=== PATIENT | female | born 1990 | race Caucasian/White ===

== ENCOUNTER 2021-01-22 13:29 | Inpatient (IN) | payer MEDICAID ==
[2021-01-22] VITALS (25 sets, daily range): BP systolic 95–145; BP diastolic 51–104
[2021-01-22] MEDS ORDERED: D5 LR IV SOLUTION 1,000 ML IV SCH (13:45)
--- NOTE | 2021-01-22 14:08 | History & Physical-OB/GYN ---
DEEPAK MCARTHUR,MED STUDENT 01/22/21 1408: OB - Chief Complaint & HPI Date/Time Date of Admission: Date of Admission: Jan 22, 2021 at 13:29 Date seen by a Provider: Jan 22, 2021 Time Seen by a Provider: 14:04 Chief Complaint/History OB-Reason for Admission/Chief: Rupture of Membranes Hx : 4 Hx Para: 2204 Expected Date of Delivery: Jan 25, 2021 Gestational Age in Weeks: 39 Gestational Age in Days: 4 History of Labs O+, antibody neg, RI, HIV/HepB/RPR NR, G/C chlamydia negative, GBS negative Other Patient was seen for a routine OB visit at [facility] this morning. She had complaints of leakage of fluid and was found to have and DION of 2. She states she had a gush of fluid around 1999 last night. She also noted bleeding at that time. She was sent to L&D from the clinic. Allergies and Home Medications Allergies Coded Allergies: No Known Drug Allergies (Unverified , 01/22/21) OB - History Hx of Present Care: Yes Ultrasounds: Normal mid trimester US Obstetrical Complications: None Medical Complications: Other (hypothyroidism) Information Induced Hypertension: No Maternal Gestational Diabetes: No Hemorrhage: No Obstetrical History Hx : 4 Hx # Term Pregnancies: 2 Hx # Pregnancies: 2 Number of Living Children: 4 Hx Termination: No Hx Multiple Gestation: Yes Hx Ectopic : No Hx Stillbirth: No Hx Complication: No Hx Induced Hypertens: No Hx Maternal Gestational Diabet: No Hx Hemorrhage: No Delivery History Hx Dystocia: No Hx Forceps Assisted Delivery: No Hx Vacuum Extraction Assisted: No Hx Section: No Hx Vaginal Delivery Post C-Sec: No Hx Blood Disorders: No Adverse Rxn to Tranfusion: No Patient Past Medical History PMedHx: Hypothyroidism PSurgHx: None Social History/Family History Alcohol Use: Denies Use Recreational Drug Use: No Smoking Cessation: Never smoker Immunizations Tetanus Booster (TDap): Less than 5yrs Rubella: immune RPR/VDRL: Negative GBS Status: Negative HBsAG: Negative OB - Admission Exam Physical Exam HEENT: NCAT Heart: Rhythm Normal Lungs: Clear Abdomen: Non tender Extremities: Normal Cervical Dilatation: 3cm Effacement: 0% Station: -3 Membranes: Ruptured Amniotic Fluid: Unevaluable Heart Rate: 140's Accelerations: Accelerations Present Decelerations: No Decelerations Short Term Variability: Present [facility] Variability: Average (6-25) Contractions on Admission: 6-10 Minutes Apart Lara Scoring Tool (Modified) Dilation (cm): 3-4cm (2) Effacement (%): 0-30% (0) Descent/Station: -3 (0) Cervix Consistency: Soft (2) Cervix Position: Anterior (2) Add 1 point for: Each previous vaginal delivery (1) Lara Score: 8 OB - Assessment/Plan/Diagnosis Assessment Assessment: induction of labor, rupture of membranes Admission Dx Term intrauterine at 39 weeks gestation Rubella Immune Blood Type O+ GBS negative Admission Status: Inpatient Order (span 2 midnights) Reason for Inpatient Admission: Labor, delivery, and course Plan Plan: Induction Induction Method: per Pitocin Protocol MIKE WHITE MD 01/22/21 1940: Allergies and Home Medications Allergies Coded Allergies: No Known Drug Allergies (Unverified , 01/22/21) Patient Home Medication List Home Medication List Reviewed: No Supervisory-Addendum Brief Verification & Attestation Participated in pt care: history, MDM, physical Personally performed: exam, history Care discussed with: Medical Student Procedures: n/a I personally saw and examined pt and repeated history and exam and directed plan of care. Agree with documentation by ENRIQUE Mcarthur. DEEPAK MCARTHUR,MED STUDENT Jan 22, 2021 14:08 MIKE WHITE MD Jan 22, 2021 19:40
[2021-01-22] MEDS: OXYTOCIN PRE-MIX DRIP 500 ML IV SCH ×2 (14:32→19:42)
[2021-01-22 15:29] LABS: BASOPHILS % (AUTO) 0 % (0-10); EOSINOPHILS % (AUTO) 1 % (0-10); HEMATOCRIT 37 % (35-52); HEMOGLOBIN 12.7 g/dL (11.5-16.0); LYMPHOCYTES # (AUTO) 1.1 10^3/uL (1.0-4.0); LYMPHOCYTES % (AUTO) 25 % (12-44); MEAN CORPUSCULAR HEMOGLOBIN 31 pg (25-34); MEAN CORPUSCULAR HGB CONC 34 g/dL (32-36); MEAN CORPUSCULAR VOLUME 91 fL (80-99); MEAN PLATELET VOLUME 10.7 fL (9.0-12.2); MONOCYTES # (AUTO) 0.3 10^3/uL (0.0-1.0); MONOCYTES % (AUTO) 7 % (0-12); NEUTROPHILS # (AUTO) 3.1 10^3/uL (1.8-7.8); NEUTROPHILS % (AUTO) 67 % (42-75); PLATELET COUNT 150 10^3/uL (130-400); WHITE BLOOD COUNT 4.6 10^3/uL (4.3-11.0)
[2021-01-22] MEDS ORDERED: fentaNYL INJ 100 MCG/2 ML AMP ONE (18:54)
--- NOTE | 2021-01-22 19:27 | OB Labor & Delivery Record ---
Vag Delivery Note Vag Delivery Note Date of Delivery: 01/22/21 Preoperative Diagnosis: Ashlee her (30 /Para 2203,Gestational Age (wks)39with 4 Postoperative Diagnosis: Same Surgeon: MIKE WHITE Systems Specialist: YANIV [email or web address] Anesthesia: None Delivery Type: Findings: Viable male , apgars 8/8, weight 5#5 Lacerations: none Intact placenta with 3 vessel cord. No nuchal cord, body cord or shoulder dystocia Estimated Blood Loss: 250 ml Complications: None Condition: Stable Description of Procedure: The patient is a 30 year old female who presented for IOL due to oligohydramnios/prolonged rupture of membranes. She was admitted and informed consent was obtained. Her labor course was remarkable for prolonged bradycardia with pushing. She progressed to complete dilatation and began to push. She was then set up for delivery. The 's head was delivered atraumatically in the OA position. The anterior shoulder along with right hand delivered easily followed by the posterior shoulder and remainder of the 's body were then delivered without difficulty. Upon delivery, the head was held below the level of the perineum and the mouth and nares were bulb suctioned. The cord was doubly clamped and cut and the infant was placed on maternal abdomen. An intact placenta with 3-vessel cord delivered via Mitch and there was found to be minimal bleeding.~ Vigorous fundal massage was performed and the fundus was found to be firm. IV oxytocin was given. Examination of the vagina and perineum revealed no lacerations. Following the delivery, sponge, instrument and needle counts were correct. Mom and baby were both in stable condition in the labor suite. Vitals - Labs Labs Laboratory Tests 01/22/21 15:05: White Blood Count 4.6, Red Blood Count 4.09, Hemoglobin 12.7, Hematocrit 37, Mean Corpuscular Volume 91, Mean Corpuscular Hemoglobin 31, Mean Corpuscular Hemoglobin Concent 34, Red Cell Distribution Width 11.3, Platelet Count 150, Mean Platelet Volume 10.7, Immature Granulocyte % (Auto) 1, Neutrophils (%) (Auto) 67, Lymphocytes (%) (Auto) 25, Monocytes (%) (Auto) 7, Eosinophils (%) (Auto) 1, Basophils (%) (Auto) 0, Neutrophils # (Auto) 3.1, Lymphocytes # (Auto) 1.1, Monocytes # (Auto) 0.3, Eosinophils # (Auto) 0.0, Basophils # (Auto) 0.0, Immature Granulocyte # (Auto) 0.0 MIKE WHITE MD Jan 22, 2021 19:27
[2021-01-22] MEDS ORDERED: OXYTOCIN PRE-MIX DRIP 500 ML IV SCH (20:45)
[2021-01-22] MEDS ORDERED: BENZOCAINE/MENTHOL (DERMOPLAST) 56 ML CAN TP PRN (20:45)
[2021-01-22] MEDS ORDERED: WITCH HAZEL(TUCKS) 40 EA JAR TOP PRN (20:45)
[2021-01-22] MEDS ORDERED: TETANUS,DIPTH,PERTUSS P/F (BOOSTRIX) 0.5 ML VIAL IM ONE (20:45)
[2021-01-22] MEDS ORDERED: MEASLES,MUMPS,RUBELLA 1 EA INJ SQ ONE (20:45)
[2021-01-22] MEDS ORDERED: CATHETER FLUSH 10 ML SYR IV SCH (22:00)
[2021-01-22] MEDS: DOCUSATE SODIUM 100 MG (COLACE) CAP PO SCH (22:05)
[2021-01-23 02:00] VITALS: BP 109/56
[2021-01-23 05:30] VITALS: BP 114/88
[2021-01-23] MEDS: IBUPROFEN 600 MG (MOTRIN) TAB PO SCH ×2 (06:12)
[2021-01-23 06:14] LABS: BASOPHILS % (AUTO) 0 % (0-10); EOSINOPHILS % (AUTO) 0 % (0-10); HEMATOCRIT 34 % (35-52); HEMOGLOBIN 11.6 g/dL (11.5-16.0); LYMPHOCYTES # (AUTO) 1.7 10^3/uL (1.0-4.0); LYMPHOCYTES % (AUTO) 28 % (12-44); MEAN CORPUSCULAR HEMOGLOBIN 31 pg (25-34); MEAN CORPUSCULAR HGB CONC 34 g/dL (32-36); MEAN CORPUSCULAR VOLUME 92 fL (80-99); MEAN PLATELET VOLUME 10.9 fL (9.0-12.2); MONOCYTES # (AUTO) 0.4 10^3/uL (0.0-1.0); MONOCYTES % (AUTO) 6 % (0-12); NEUTROPHILS # (AUTO) 3.9 10^3/uL (1.8-7.8); NEUTROPHILS % (AUTO) 64 % (42-75); PLATELET COUNT 157 10^3/uL (130-400); WHITE BLOOD COUNT 6.1 10^3/uL (4.3-11.0)
[2021-01-23 09:00] VITALS: BP 100/55
[2021-01-23] MEDS: DOCUSATE SODIUM 100 MG (COLACE) CAP PO SCH (09:00)
--- NOTE | 2021-01-23 09:34 | Progress Note ---
Subjective Subjective/Events-last exam Doing well. Normal lochia, pain well controlled. Objective Exam Last Set of Vital Signs Vital Signs Date Time Temp Pulse Resp B/P (MAP) Pulse Ox O2 Delivery O2 Flow Rate FiO2 01/23/21 05:30 37.0 76 16 114/88 (97) 98 Room Air Capillary Refill : Less Than 3 Seconds General: Alert, Oriented X3, Cooperative Psych/Mental Status: Mood NL Results/Procedures Lab Laboratory Tests 01/22/21 15:05: White Blood Count 4.6, Red Blood Count 4.09, Hemoglobin 12.7, Hematocrit 37, Mean Corpuscular Volume 91, Mean Corpuscular Hemoglobin 31, Mean Corpuscular Hemoglobin Concent 34, Red Cell Distribution Width 11.3, Platelet Count 150, Mean Platelet Volume 10.7, Immature Granulocyte % (Auto) 1, Neutrophils (%) (Auto) 67, Lymphocytes (%) (Auto) 25, Monocytes (%) (Auto) 7, Eosinophils (%) (Auto) 1, Basophils (%) (Auto) 0, Neutrophils # (Auto) 3.1, Lymphocytes # (Auto) 1.1, Monocytes # (Auto) 0.3, Eosinophils # (Auto) 0.0, Basophils # (Auto) 0.0, Immature Granulocyte # (Auto) 0.0 01/23/21 05:29: White Blood Count 6.1, Red Blood Count 3.76L, Hemoglobin 11.6, Hematocrit 34L, Mean Corpuscular Volume 92, Mean Corpuscular Hemoglobin 31, Mean Corpuscular Hemoglobin Concent 34, Red Cell Distribution Width 11.3, Platelet Count 157, Mean Platelet Volume 10.9, Immature Granulocyte % (Auto) 1, Neutrophils (%) (Auto) 64, Lymphocytes (%) (Auto) 28, Monocytes (%) (Auto) 6, Eosinophils (%) (Auto) 0, Basophils (%) (Auto) 0, Neutrophils # (Auto) 3.9, Lymphocytes # (Auto) 1.7, Monocytes # (Auto) 0.4, Eosinophils # (Auto) 0.0, Basophils # (Auto) 0.0, Immature Granulocyte # (Auto) 0.0 Assessment/Plan Assessment/Plan (1) Status post vaginal delivery Assessment & Plan: PPD#1 s/p at 39w4d following [facility] Routine care. Anticipate DC home tomorrow. RODRIGUEZ JACKSON DO Jan 23, 2021 09:34
[2021-01-23 12:30] VITALS: BP 93/52
[2021-01-23 16:50] VITALS: BP 104/58
[2021-01-23 21:00] VITALS: BP 96/61
[2021-01-24 02:17] VITALS: BP 137/52
[2021-01-24] MEDS: DOCUSATE SODIUM 100 MG (COLACE) CAP PO SCH ×2 (02:44→09:00)
[2021-01-24] MEDS: IBUPROFEN 600 MG (MOTRIN) TAB PO SCH ×3 (02:44→09:00)
[2021-01-24 09:30] VITALS: BP 94/50
[2021-01-24] MEDS ORDERED: IBUP-844 PO (12:29)
--- NOTE | 2021-01-24 12:29 | Short Stay Summary ---
Discharge Summary Hospital Course Problems/Dx: (1) Status post vaginal delivery Assessment & Plan: s/p at 39w4d following [facility] Routine care. Final Diagnosis: see problem list Hospital Course Date of Admission: Jan 22, 2021 at 13:29 Family Physician/Provider: Serenity Morales MD Date of Discharge: 01/24/21 Labs and Pending Lab Test: Laboratory Tests 01/22/21 15:05: White Blood Count 4.6, Red Blood Count 4.09, Hemoglobin 12.7, Hematocrit 37, Me an Corpuscular Volume 91, Mean Corpuscular Hemoglobin 31, Mean Corpuscular Hemoglobin Concent 34, Red Cell Distribution Width 11.3, Platelet Count 150, Mean Platelet Volume 10.7, Immature Granulocyte % (Auto) 1, Neutrophils (%) (Auto) 67, Lymphocytes (%) (Auto) 25, Monocytes (%) (Auto) 7, Eosinophils (%) (Auto) 1, Basophils (%) (Auto) 0, Neutrophils # (Auto) 3.1, Lymphocytes # (Auto) 1.1, Monocytes # (Auto) 0.3, Eosinophils # (Auto) 0.0, Basophils # (Auto) 0.0, Immature Granulocyte # (Auto) 0.0 01/23/21 05:29: White Blood Count 6.1, Red Blood Count 3.76L, Hemoglobin 11.6, Hematocrit 34L, Mean Corpuscular Volume 92, Mean Corpuscular Hemoglobin 31, Mean Corpuscular Hemoglobin Concent 34, Red Cell Distribution Width 11.3, Platelet Count 157, Mean Platelet Volume 10.9, Immature Granulocyte % (Auto) 1, Neutrophils (%) (Auto) 64, Lymphocytes (%) (Auto) 28, Monocytes (%) (Auto) 6, Eosinophils (%) (Auto) 0, Basophils (%) (Auto) 0, Neutrophils # (Auto) 3.9, Lymphocytes # (Auto) 1.7, Monocytes # (Auto) 0.4, Eosinophils # (Auto) 0.0, Basophils # (Auto) 0.0, Immature Granulocyte # (Auto) 0.0 Assessment/Pt Instructions follow up with Dr. Morales in 6wk Discharge Instructions Discharge Diet: No Restrictions Discharge Physical Examination General Appearance: Alert, Oriented X3, Cooperative Psych/Mental Status: Mood NL Allergies: Coded Allergies: No Known Drug Allergies (Unverified , 01/22/21) Discharge Summary Date of Admission Jan 22, 2021 at 13:29 Date of Discharge RODRIGUEZ JACKSON DO Jan 24, 2021 12:29
[2021-01-24 14:30] VITALS: BP 107/56
[2021-01-24 17:15] VITALS: BP 107/56
== END 2021-01-24 17:15 | disposition home or self-care (01) | DRG 807 ==
LOC: LDRP 13:29
PROVIDERS: ADMIT Family Medicine; ATTEND Family Medicine
PROC: 10E0XZZ Delivery of Products of Conception, External Approach (ICD-10-PCS; principal; 2021-01-22)
PROC: 3E033VJ Introduction of Other Hormone into Peripheral Vein, Percutaneous Approach (ICD-10-PCS; 2021-01-22)
DX: O41.03X0 Oligohydramnios, third trimester, not applicable or unspecified (principal); Z37.0 Single live birth; O42.02 Full-term premature rupture of membranes, onset of labor within 24 hours of rupture; O99.283 Endocrine, nutritional and metabolic diseases complicating pregnancy, third trimester; E03.9 Hypothyroidism, unspecified; Z3A.39 39 weeks gestation of pregnancy
CPT/HCPCS: 36415; 85025; 86850; 86900; 86901

== ENCOUNTER 2022-02-12 12:59 | Inpatient (IN) | payer MEDICAID ==
[~2022-02-12] VITALS: Ht 150 cm; Wt 67.4 kg
[2022-02-12] VITALS (9 sets, daily range): BP systolic 119–166; BP diastolic 56–91
[~2022-02-12 12:59] MED LIST: IBUP-844 PO
[2022-02-12 13:54] LABS: BILIRUBIN,URINE NEGATIVE (NEGATIVE); CLARITY,URINE CLEAR; COLOR,URINE YELLOW; GLUCOSE, URINE (UA) NEGATIVE (NEGATIVE); KETONES,URINE NEGATIVE (NEGATIVE); LEUKOCYTE ESTERASE ,URINE 1+ (NEGATIVE); NITRITE,URINE NEGATIVE (NEGATIVE); PROTEIN,URINE TRACE (NEGATIVE)
[2022-02-12 14:15] LABS: BACTERIA,URINE TRACE /HPF
[2022-02-12] MEDS ORDERED: LACTATED RINGERS 1,000 ML IV SCH (15:15)
[2022-02-12] MEDS ORDERED: MINERAL OIL 30 ML OIL TOP PRN (18:45)
[2022-02-12 18:50] LABS: BASOPHILS # (AUTO) 0.1 10^3/uL (0.0-0.1); BASOPHILS % (AUTO) 1 % (0-10); EOSINOPHILS # (AUTO) 0.4 10^3/uL (0.0-0.3); EOSINOPHILS % (AUTO) 3 % (0-10); HEMATOCRIT 37 % (35-52); HEMOGLOBIN 12.9 g/dL (11.5-16.0); LYMPHOCYTES # (AUTO) 2.7 10^3/uL (1.0-4.0); LYMPHOCYTES % (AUTO) 18 % (12-44); MEAN CORPUSCULAR HEMOGLOBIN 32 pg (25-34); MEAN CORPUSCULAR HGB CONC 35 g/dL (32-36); MEAN CORPUSCULAR VOLUME 90 fL (80-99); MEAN PLATELET VOLUME 9.8 fL (9.0-12.2); MONOCYTES # (AUTO) 0.8 10^3/uL (0.0-1.0); MONOCYTES % (AUTO) 5 % (0-12); NEUTROPHILS # (AUTO) 11.3 10^3/uL (1.8-7.8); NEUTROPHILS % (AUTO) 74 % (42-75); PLATELET COUNT 198 10^3/uL (130-400); WHITE BLOOD COUNT 15.4 10^3/uL (4.3-11.0)
[2022-02-12] MEDS ORDERED: LIDOCAINE/EPI 2% 1:200,00 (XYLOCAINE) 10 ML VIAL ONE (18:50)
[2022-02-12] MEDS ORDERED: OXYTOCIN PRE-MIX DRIP 500 ML IV ONE ×2 (18:51→19:35)
[2022-02-12] MEDS: OXYTOCIN PRE-MIX DRIP 500 ML IV SCH (19:04)
[2022-02-12 19:25] LABS: BAND NEUTROPHILS 1 %; EOSINOPHILS % (MANUAL) 2 %; LYMPHOCYTES % (MANUAL) 13 %; MONOCYTES % (MANUAL) 2 %; NEUTROPHILS % (MANUAL) 82 %; RBC MORPH NORMAL
--- NOTE | 2022-02-12 19:25 | History & Physical-OB ---
OB - Chief Complaint & HPI Date/Time Date of Admission: Date of Admission: Feb 12, 2022 at 18:30 Date seen by a Provider: Feb 12, 2022 Time Seen by a Provider: 19:06 Chief Complaint/History OB-Reason for Admission/Chief: Onset of Labor Hx : 5 Hx Para: 4 Expected Date of Delivery: February 28, 2022 Gestational Age in Weeks: 37 Gestational Age in Days: 5 Other reason for admission: 31 yo @ 37.5 wga sent here from clinic due to advanced dilation and intermittent contractions. No LOF or Vag bleeding. History of Labs O+, Ab neg, Rub Imm HIV/RPR/HepB/C NR GBS unknown Allergies and Home Medications Allergies Coded Allergies: No Known Drug Allergies (Unverified , 01/22/21) Patient Home Medication List Home Medication List Reviewed: Yes Ibuprofen (Ibu) 600 Mg Tablet, 600 MG PO Q6HR PRN for CRAMPS Prescribed by: RODRIGUEZ JACKSON on 01/24/21 1229 OB - History Hx of Present Care: Yes Ultrasounds: Other (Initial US @ 33 weeks) Obstetrical Complications: None Medical Complications: None Obstetrical History Hx : 5 Hx Para: 4 Hx # Term Pregnancies: 3 Hx # Pregnancies: 1 Number of Living Children: 5 Hx Termination: No Hx Total # of Abortions (Spona: 0 Hx Multiple Gestation: Yes Hx Stillbirth: No Hx Complication: No Hx Induced Hypertens: No Hx Maternal Gestational Diabet: No Delivery History Hx Dystocia: No Hx Section: No Hx Vaginal Delivery Post C-Sec: No Hx Blood Disorders: No Adverse Rxn to Tranfusion: No Patient Past Medical History PMedHx: Hypothyroidism PSurgHx: None Social History/Family History Alcohol Use: Denies Use Recreational Drug Use: No 2nd Hand Smoke Exposure: No Immunizations Hepatitis A: No Hepatitis B: No Tetanus Booster (TDap): Less than 5yrs Rubella: immune RPR/VDRL: Negative GBS Status: Unknown HBsAG: Negative OB - Admission Exam Physical Exam Vitals: Vital Signs 02/12/22 02/12/22 13:52 14:17 Temp 36.6 Pulse 76 Resp 18 B/P (MAP) 122/71 (88) Pulse Ox 98 O2 Delivery Room Air HEENT: NCAT Heart: Rhythm Normal Lungs: Clear Abdomen: Gravid Cervical Dilatation: other (Baby delivered at time of H and P) Labs Laboratory Tests Test 02/12/22 13:19 02/12/22 18:42 Range/Units Urine Color YELLOW Urine Clarity CLEAR Urine pH 6.0 5-9 Urine Specific [place] 1.015 L 1.016-1.022 Urine Protein TRACE H NEGATIVE Urine Glucose (UA) NEGATIVE NEGATIVE Urine Ketones NEGATIVE NEGATIVE Urine Nitrite NEGATIVE NEGATIVE Urine Bilirubin NEGATIVE NEGATIVE Urine Urobilinogen 0.2 < = 1.0 MG/DL Urine Leukocyte Esterase 1+ H NEGATIVE Urine RBC (Auto) 2+ H NEGATIVE Urine RBC NONE /HPF Urine WBC 2-5 /HPF Urine Squamous Epithelial Cells 2-5 /HPF Urine Crystals NONE /LPF Urine Bacteria TRACE /HPF Urine Casts NONE /LPF Urine Mucus NEGATIVE /LPF Urine Culture Indicated NO White Blood Count 15.4 H 4.3-11.0 10^3/uL Red Blood Count 4.08 3.80-5.11 10^6/uL Hemoglobin 12.9 11.5-16.0 g/dL Hematocrit 37 35-52 % Mean Corpuscular Volume 90 80-99 fL Mean Corpuscular Hemoglobin 32 25-34 pg Mean Corpuscular Hemoglobin Concent 35 32-36 g/dL Red Cell Distribution Width 11.3 10.0-14.5 % Platelet Count 198 130-400 10^3/uL Mean Platelet Volume 9.8 9.0-12.2 fL Immature Granulocyte % (Auto) 1 % Neutrophils (%) (Auto) 74 42-75 % Lymphocytes (%) (Auto) 18 12-44 % Monocytes (%) (Auto) 5 0-12 % Eosinophils (%) (Auto) 3 0-10 % Basophils (%) (Auto) 1 0-10 % Neutrophils # (Auto) 11.3 H 1.8-7.8 10^3/uL Lymphocytes # (Auto) 2.7 1.0-4.0 10^3/uL Monocytes # (Auto) 0.8 0.0-1.0 10^3/uL Eosinophils # (Auto) 0.4 H 0.0-0.3 10^3/uL Basophils # (Auto) 0.1 0.0-0.1 10^3/uL Immature Granulocyte # (Auto) 0.1 0.0-0.1 10^3/uL OB - Assessment/Plan/Diagnosis Assessment Assessment: active labor Admission Dx Advanced dilation Third trimester 37 week gestation Limited care Admission Status: Inpatient Order (span 2 midnights) Reason for Inpatient Admission: Labor Plan Other Plan 31 yo @ 37.5 wga sent from clinic for advanced dilation and intermittent contractions Plan Expectant management GBS Unknown, term low risk, no ppx treatment recommended LESLIE ORITZ MD Feb 12, 2022 19:25
--- NOTE | 2022-02-12 19:42 | OB Labor & Delivery Record ---
Vag Delivery Note Vag Delivery Note Date of Delivery: 02/12/22 Preoperative Diagnosis: sAhlee gr a (31 /Para 5 / 4,Gestational Age (wks)37.5 here in active labor Postoperative Diagnosis: Same Surgeon: LESLIE ORTIZ MD Interior Surface Insulation Worker: None Anesthesia: None Delivery Type: @ 190 Findings: Viable female infant, apgars 8/9, weight 5#14, 2670 grams Lacerations: None Intact placenta with 3 vessel cord. No nuchal cord, body cord or shoulder dystocia Estimated Blood Loss: 125 ml Complications: None Condition: Stable Description of Procedure: The patient is a 31 year old female who presented in active labor. She was admitted and informed consent was obtained. Her labor course was remarkable for precipitous delivery, delivered prior to my arrival by nursing. MAUREEN position. Tight nuchal x1 delivered thru. The shoulders and remainder of the infant's body were then delivered without difficulty. The cord was doubly clamped and cut and the was handed off to the pediatric staff. An intact placenta with 3- vessel cord delivered via Mitch and there was found to be minimal bleeding @ 1906.~ Vigorous fundal massage was performed and the fundus was found to be firm. IV oxytocin was given. Examination of the vagina and perineum revealed no lacerations that required repair. Following the repair, sponge, instrument and needle counts were correct. Mom and baby were both in stable condition in the labor suite. Vitals - Labs Vital Signs - I&O Vital Signs Date Time Temp Pulse Resp B/P (MAP) Pulse Ox O2 Delivery O2 Flow Rate FiO2 02/12/22 14:17 76 18 122/71 (88) 02/12/22 13:52 36.6 75 16 98 Room Air 02/12/22 13:45 86 16 120/91 (101) Labs Laboratory Tests 02/12/22 13:19: Urine Color YELLOW, Urine Clarity CLEAR, Urine pH 6.0, Urine Specific [place] 1.015L, Urine Protein TRACEH, Urine Glucose (UA) NEGATIVE, Urine Ketones NEGATIVE, Urine Nitrite NEGATIVE, Urine Bilirubin NEGATIVE, Urine Urobilinogen 0.2, Urine Leukocyte Esterase 1+H, Urine RBC (Auto) 2+H, Urine RBC NONE, Urine WBC 2-5, Urine Squamous Epithelial Cells 2-5, Urine Crystals NONE, Urine Bacteria TRACE, Urine Casts NONE, Urine Mucus NEGATIVE, Urine Culture Indicated NO 02/12/22 18:42: White Blood Count 15.4H, Red Blood Count 4.08, Hemoglobin 12.9, Hematocrit 37, Mean Corpuscular Volume 90, Mean Corpuscular Hemoglobin 32, Mean Corpuscular Hemoglobin Concent 35, Red Cell Distribution Width 11.3, Platelet Count 198, Mean Platelet Volume 9.8, Immature Granulocyte % (Auto) 1, Neutrophils (%) (Auto) 74, Lymphocytes (%) (Auto) 18, Monocytes (%) (Auto) 5, Eosinophils (%) (Auto) 3, Basophils (%) (Auto) 1, Neutrophils # (Auto) 11.3H, Lymphocytes # (Auto) 2.7, Monocytes # (Auto) 0.8, Eosinophils # (Auto) 0.4H, Basophils # (Auto) 0.1, Immature Granulocyte # (Auto) 0.1, Neutrophils % (Manual) 82, Lymphocytes % (Manual) 13, Monocytes % (Manual) 2, Eosinophils % (Manual) 2, Band Neutrophils 1, Blood Morphology Comment NORMAL LESLIE ORTIZ MD Feb 12, 2022 19:42
[2022-02-12] MEDS ORDERED: WITCH HAZEL(TUCKS) 40 EA JAR TOP PRN (19:45)
[2022-02-12] MEDS ORDERED: BENZOCAINE/MENTHOL (DERMOPLAST) 56 ML CAN TP PRN (19:45)
[2022-02-12] MEDS: CATHETER FLUSH 10 ML SYR IV SCH (20:30)
[2022-02-12] MEDS: DOCUSATE SODIUM 100 MG (COLACE) CAP PO SCH (21:00)
[2022-02-12] MEDS ORDERED: CATHETER FLUSH 10 ML SYR IV SCH (22:00)
[2022-02-13] MEDS: OXYTOCIN PRE-MIX DRIP 500 ML IV SCH (00:20)
[2022-02-13] MEDS: IBUPROFEN 600 MG (MOTRIN) TAB PO SCH ×4 (00:55→19:08)
[2022-02-13] MEDS: ACETAMINOPHEN 500 MG TAB (TYLENOL) PO SCH ×4 (00:55→20:52)
[2022-02-13] MEDS: CATHETER FLUSH 10 ML SYR IV SCH (00:55)
[2022-02-13 00:56] VITALS: BP 115/64
[2022-02-13 04:15] VITALS: BP 116/53
[2022-02-13 06:39] LABS: BASOPHILS # (AUTO) 0.1 10^3/uL (0.0-0.1); BASOPHILS % (AUTO) 0 % (0-10); EOSINOPHILS # (AUTO) 0.4 10^3/uL (0.0-0.3); EOSINOPHILS % (AUTO) 3 % (0-10); HEMATOCRIT 33 % (35-52); HEMOGLOBIN 11.5 g/dL (11.5-16.0); LYMPHOCYTES # (AUTO) 2.6 10^3/uL (1.0-4.0); LYMPHOCYTES % (AUTO) 20 % (12-44); MEAN CORPUSCULAR HEMOGLOBIN 32 pg (25-34); MEAN CORPUSCULAR HGB CONC 35 g/dL (32-36); MEAN CORPUSCULAR VOLUME 91 fL (80-99); MEAN PLATELET VOLUME 10.3 fL (9.0-12.2); MONOCYTES # (AUTO) 0.9 10^3/uL (0.0-1.0); MONOCYTES % (AUTO) 7 % (0-12); NEUTROPHILS # (AUTO) 9.4 10^3/uL (1.8-7.8); NEUTROPHILS % (AUTO) 70 % (42-75); PLATELET COUNT 185 10^3/uL (130-400); WHITE BLOOD COUNT 13.5 10^3/uL (4.3-11.0)
[2022-02-13 08:15] VITALS: BP 114/56
[2022-02-13] MEDS: DOCUSATE SODIUM 100 MG (COLACE) CAP PO SCH ×2 (08:25→20:51)
[2022-02-13 13:11] VITALS: BP 131/63
[2022-02-13 15:49] VITALS: BP 113/56
--- NOTE | 2022-02-13 20:45 | Postpartum Progress Note ---
Note Note Day # 1 Subjective: Patient is without complaints. Ambulating, voiding. Tolerating a regular diet without nausea or vomiting. Normal lochia. Pain is well controlled with oral pain medications. Bottle feeding. Objective: Physical Exam: General - Alert and oriented, no apparent distress Abdomen - Soft, appropriately tender to palpation, non-distended, fundus firm at umbilicus Extremities - no edema, negative Eugenio's bilaterally Assessment: 31 yo G5 now P6 post- day #1, status post spontaneous precipitous vaginal delivery. Recovering well, hemodynamically stable Plan: Routine care. Encourage breast feeding, mother bottle feeding currently Encourage ambulation. Plan for discharge tomorrow with [address] Morales Vitals - Labs Vital Signs - I&O Vital Signs Date Time Temp Pulse Resp B/P (MAP) Pulse Ox O2 Delivery O2 Flow Rate FiO2 02/13/22 15:49 36.3 67 14 113/56 (75) 99 02/13/22 13:11 36.4 77 18 131/63 (85) 99 Room Air 02/13/22 08:19 99 Room Air 02/13/22 08:15 36.5 68 16 114/56 (75) 99 Room Air 02/13/22 04:15 36.9 62 18 116/53 (74) 99 Room Air 02/13/22 00:56 36.7 64 18 115/64 (81) 99 Room Air I & O 02/13/22 07:00 Intake Total 1800 ml Balance 1800 ml Labs Laboratory Tests 02/13/22 06:07: White Blood Count 13.5H, Red Blood Count 3.59L, Hemoglobin 11.5, Hematocrit 33L, Mean Corpuscular Volume 91, Mean Corpuscular Hemoglobin 32, Mean Corpuscular Hemoglobin Concent 35, Red Cell Distribution Width 11.4, Platelet Count 185, Mean Platelet Volume 10.3, Immature Granulocyte % (Auto) 0, Neutrophils (%) (Auto) 70, Lymphocytes (%) (Auto) 20, Monocytes (%) (Auto) 7, Eosinophils (%) (Auto) 3, Basophils (%) (Auto) 0, Neutrophils # (Auto) 9.4H, Lymphocytes # (Auto) 2.6, Monocytes # (Auto) 0.9, Eosinophils # (Auto) 0.4H, Basophils # (Auto) 0.1, Immature Granulocyte # (Auto) 0.1 LESLIE ORTIZ MD Feb 13, 2022 20:45
[2022-02-13 20:52] VITALS: BP 136/58
[2022-02-14 02:28] VITALS: BP 90/52
[2022-02-14] MEDS: IBUPROFEN 600 MG (MOTRIN) TAB PO SCH ×4 (02:28→22:34)
[2022-02-14] MEDS: ACETAMINOPHEN 500 MG TAB (TYLENOL) PO SCH ×4 (06:38→22:34)
[2022-02-14 07:45] VITALS: BP 111/53
[2022-02-14] MEDS ORDERED: RT-ALBUTEROL SULF 2.5 MG/3 ML PRE-MIX VIAL ONE ×2 (10:01→20:22)
[2022-02-14] MEDS: DOCUSATE SODIUM 100 MG (COLACE) CAP PO SCH ×2 (10:47→22:34)
[2022-02-14 16:22] VITALS: BP 118/63
--- NOTE | 2022-02-14 18:40 | Postpartum Progress Note ---
Note Note Day # 2 Subjective: Patient complains of shortness of breath and coughing. is also not feeling well. Ambulating, voiding. Tolerating a regular diet without nausea or vomiting. Normal lochia. Pain is well controlled with oral pain medications. Bottle feeding. Objective: Physical Exam: General - Alert and oriented, no apparent distress CV: RRR, no murmurs Pulm: End Exp wheezing, normal work of breathing Abdomen - Soft, appropriately tender to palpation, non-distended, fundus firm at umbilicus Extremities - no edema, negative Eugenio's bilaterally Assessment: 31 yo G5 now P6 post- day # 2, status post precipitous vaginal delivery. Recovering well, hemodynamically stable Plan: Routine care. Wheezing: Unclear if patient has previous reactive airway disease, will get Covid/flu swab today, MAT protocol Encourage breast feeding, Mother bottle feeding Encourage ambulation. Plan for discharge tomorrow with 6 week f/u with [facility] Vitals - Labs Vital Signs - I&O Vital Signs Date Time Temp Pulse Resp B/P (MAP) Pulse Ox O2 Delivery O2 Flow Rate FiO2 02/14/22 16:22 36.7 66 18 118/63 (81) 100 Room Air 02/14/22 08:00 Room Air 02/14/22 07:45 36.2 68 20 111/53 (72) 99 Room Air 02/14/22 02:28 36.3 68 16 90/52 (65) 99 Room Air 02/13/22 20:52 36.8 63 16 136/58 (84) 99 Room Air Labs Laboratory Tests 02/14/22 11:10: Influenza Type A (RT-PCR) Not Detected, Influenza Type A Antigen , Influenza Type B Antigen , Influenza Type B (RT-PCR) Not Detected, SARS-CoV-2 RNA (RT-PCR) Not Detected LESLIE ORTIZ MD Feb 14, 2022 18:40
[2022-02-14] MEDS ORDERED: RT-ALBUTEROL SULF 2.5 MG/3 ML PRE-MIX VIAL INH PRN (21:00)
[2022-02-14 22:34] VITALS: BP 113/55
[2022-02-15 04:56] VITALS: BP 100/54
[2022-02-15] MEDS: IBUPROFEN 600 MG (MOTRIN) TAB PO SCH ×2 (04:56→04:57)
[2022-02-15] MEDS: ACETAMINOPHEN 500 MG TAB (TYLENOL) PO SCH (04:56)
--- NOTE | 2022-02-15 08:13 | Discharge Summary ---
Diagnosis/Chief Complaint Date of Admission Feb 12, 2022 at 18:30 Date of Discharge 02/15/22 Admission Diagnosis Admission Diagnosis Third Trimester 37 week gestation Discharge Diagnosis Precipitous delivery of term female wheezing Discharge Summary-Simple/Stand Procedures Precipitous vaginal delivery Discharge Physical Examination Allergies: Coded Allergies: No Known Drug Allergies (Unverified , 01/22/21) Vitals & I&Os Vital Sign - Last 12Hours Date Time Temp Pulse Resp B/P (MAP) Pulse Ox O2 Delivery O2 Flow Rate FiO2 02/15/22 04:56 36.2 69 18 100/54 (69) 100 Room Air General Appearance: Alert, Oriented X3, Cooperative, No Acute Distress HEENT: Mucous Memb Moist/[place]ant[place] Respiratory: Clear to Auscultation, Normal Air Movement Cardiovascular: Regular Rate, No Murmurs Abdominal: Normal Bowel Sounds, Soft, No Tenderness, No Masses Extremities: No Edema, No Tenderness/Swelling Skin: No Rashes Neuro: Normal Speech, Sensation Intact, Cranial Nerves 3-12 NL Psych/Mental Status: Mental Status NL, Mood NL Hospital Course Was the Problem List Reviewed?: Yes See final discharge diagnosis. Discussion & Recommendations 31 yo G5 now P6 s/p precipitous vaginal delivery of 37 week term female . Patient had limited care with Dr Morales. Discharge Condition at discharge stable Instructions to patient/family Please see electronic discharge instructions given to patient. Discharge Medications Reviewed and agree with Discharge Medication list on patient's Discharge Instruction sheet LESLIE ORTIZ MD Feb 15, 2022 08:13
[2022-02-15] MEDS ORDERED: DOCU100C37 PO (08:18)
--- NOTE | 2022-02-15 08:19 | Discharge Summary ---
Discharge Inst-[facility] Reconcile Patient Problems Problems Reviewed?: Yes Depart Medications New, Converted or Re-Newed RX: Transmitted to Pharmacy New Medications: Docusate Sodium (Docusate Sodium) 100 Mg Capsule 100 MG PO BID, #20 CAP Continued Medications: Ibuprofen (Ibu) 600 Mg Tablet 600 MG PO Q6HR PRN for CRAMPS, #90 TAB 0 Refills Follow Up/Instructions Goal/Follow Up: [address] Morales Activity Activity: Activity as Tolerated Driving Instructions: You May Drive NO SMOKING: NO SMOKING Nothing Inside Vagina: No Douching, No [place]lee, No Tampons Diet Discharge Diet: No Restrictions Symptoms to Report to : Bleeding Excessive, Pain Increased, Fever Over 101 Degrees F Copies To 1: MIKE MORALES MD, HOLLY R MD Feb 15, 2022 08:19
[2022-02-15 10:05] VITALS: BP 112/58
[2022-02-15] MEDS: DOCUSATE SODIUM 100 MG (COLACE) CAP PO SCH (10:10)
[2022-02-15 10:15] VITALS: BP 112/58
== END 2022-02-15 10:45 | disposition home or self-care (01) | DRG 807 ==
LOC: WSo 12:59 → LDRP 13:01 → WSo 18:30 → LDRP 20:45
PROVIDERS: ADMIT Family Medicine; ATTEND Family Medicine
PROC: 10E0XZZ Delivery of Products of Conception, External Approach (ICD-10-PCS; principal; 2022-02-12)
DX: O62.3 Precipitate labor (principal); Z37.0 Single live birth; O99.284 Endocrine, nutritional and metabolic diseases complicating childbirth; E03.9 Hypothyroidism, unspecified; Z3A.37 37 weeks gestation of pregnancy; R06.2 Wheezing; Z20.822 Contact with and (suspected) exposure to COVID-19
CPT/HCPCS: 36415; 81000; 85007; 85025; 85027; 86850; 86900; 86901; 87636; 94640; 99212

== ENCOUNTER 2023-09-27 01:16 | Inpatient (IN) | payer MEDICAID ==
[~2023-09-27] VITALS: Ht 149.5 cm; Wt 71.0 kg
[2023-09-27] VITALS (15 sets, daily range): BP systolic 93–153; BP diastolic 50–73
[~2023-09-27 01:16] MED LIST changes: +DOCU100C37 PO
[2023-09-27] MEDS ORDERED: AMPICILLIN 2,000 MG/14.8 ML (IV USE) ONE (02:14)
[2023-09-27] MEDS ORDERED: D5 LR 1,000 ML IV SOLN 1,000 ML IV ONE (02:14)
[2023-09-27] MEDS ORDERED: WATER (STERILE) FOR INJECTION 0 ML ONE (02:14)
[2023-09-27] MEDS ORDERED: LACTATED RINGERS 1,000 ML 500 ML IV PRN (02:15)
[2023-09-27] MEDS ORDERED: D5 LR 1,000 ML IV SOLN 1,000 ML IV SCH (02:15)
[2023-09-27] MEDS ORDERED: MINERAL OIL 30 ML UDC TOP PRN (02:15)
[2023-09-27] MEDS ORDERED: AMPICILLIN (IV) 2,000 MG in NS (IVPB) 50 ML 50 ML IV ONE (02:15)
[2023-09-27 02:19] LABS: BASOPHILS # (AUTO) 0.1 10^3/uL (0.0-0.1); BASOPHILS % (AUTO) 1 % (0-10); EOSINOPHILS # (AUTO) 0.1 10^3/uL (0.0-0.3); EOSINOPHILS % (AUTO) 1 % (0-10); HEMATOCRIT 37 % (35-52); HEMOGLOBIN 12.8 g/dL (11.5-16.0); LYMPHOCYTES % (AUTO) 16 % (12-44); MEAN CORPUSCULAR HEMOGLOBIN 31 pg (25-34); MEAN CORPUSCULAR HGB CONC 35 g/dL (32-36); MEAN CORPUSCULAR VOLUME 89 fL (80-99); MEAN PLATELET VOLUME 10.3 fL (9.0-12.2); MONOCYTES # (AUTO) 0.7 10^3/uL (0.0-1.0); MONOCYTES % (AUTO) 6 % (0-12); NEUTROPHILS # (AUTO) 9.5 10^3/uL (1.8-7.8); NEUTROPHILS % (AUTO) 77 % (42-75); PLATELET COUNT 207 10^3/uL (130-400); WHITE BLOOD COUNT 12.4 10^3/uL (4.3-11.0)
[2023-09-27 02:28] LABS: BILIRUBIN,URINE NEGATIVE (NEGATIVE); CLARITY,URINE CLEAR; COLOR,URINE YELLOW; GLUCOSE, URINE (UA) NEGATIVE (NEGATIVE); KETONES,URINE NEGATIVE (NEGATIVE); LEUKOCYTE ESTERASE ,URINE 2+ (NEGATIVE); NITRITE,URINE NEGATIVE (NEGATIVE); PH,URINE 6.5 (5-9); PROTEIN,URINE 2+ (NEGATIVE)
[2023-09-27 02:29] LABS: BACTERIA,URINE FEW /HPF; RBC,URINE 0-2 /HPF; SQUAMOUS EPITHELIAL CELL,UR 0-2 /HPF; WBC,URINE 0-2 /HPF
[2023-09-27] MEDS ORDERED: OXYTOCIN DRIP PRE-MIX 1,000 ML IV ONE (02:35)
--- NOTE | 2023-09-27 02:52 | History & Physical-OB ---
OB - Chief Complaint & HPI Date/Time Date of Admission: Date of Admission: Date seen by a Provider: Sep 27, 2023 Time Seen by a Provider: 02:40 Chief Complaint/History OB-Reason for Admission/Chief: Onset of Labor Hx : 6 Hx Para: 6 Expected Date of Delivery: Oct 05, 2023 Gestational Age in Weeks: 38 Gestational Age in Days: 6 Admission Nurse Assessment Rev: Yes History of Labs GBS pending Allergies and Home Medications Allergies Coded Allergies: No Known Drug Allergies (Unverified , 01/22/21) Patient Home Medication List Home Medication List Reviewed: Yes Docusate Sodium (Docusate Sodium) 100 Mg Capsule, 100 MG PO BID Prescribed by: LESLIE ORTIZ on 02/15/22 0818 Ibuprofen (Ibu) 600 Mg Tablet, 600 MG PO Q6HR PRN for CRAMPS Prescribed by: RODRIGUEZ JACKSON on 01/24/21 1229 OB - History Hx of Present Care: Yes Ultrasounds: Normal mid trimester US Obstetrical Complications: None Medical Complications: Other (hypothyroid) Obstetrical History Hx Termination: No Hx Multiple Gestation: Yes Hx Stillbirth: No Hx Complication: No Hx Induced Hypertens: No Hx Maternal Gestational Diabet: No Delivery History Hx Dystocia: No Hx Section: No Hx Vaginal Delivery Post C-Sec: No Hx Blood Disorders: No Adverse Rxn to Tranfusion: No Patient Past Medical History PMedHx: Hypothyroidism PSurgHx: None Social History/Family History 2nd Hand Smoke Exposure: No Immunizations Hepatitis A: No Hepatitis B: No Tetanus Booster (TDap): Less than 5yrs OB - Admission Exam Physical Exam HEENT: Moist Membranes Heart: Rhythm Normal Lungs: Clear Cervical Dilatation: 6cm Effacement: 75% Station: -3 Membranes: Intact Heart Rate: 140's Accelerations: Accelerations Present Short Term Variability: Present Intensity: Moderate Labs Laboratory Tests Test 09/27/23 01:35 09/27/23 02:10 Range/Units Urine Color YELLOW Urine Clarity CLEAR Urine pH 6.5 5-9 Urine Specific [place] 1.010 L 1.016-1.022 Urine Protein 2+ H NEGATIVE Urine Glucose (UA) NEGATIVE NEGATIVE Urine Ketones NEGATIVE NEGATIVE Urine Nitrite NEGATIVE NEGATIVE Urine Bilirubin NEGATIVE NEGATIVE Urine Urobilinogen 0.2 < = 1.0 MG/DL Urine Leukocyte Esterase 2+ H NEGATIVE Urine RBC (Auto) 3+ H NEGATIVE Urine RBC 0-2 /HPF Urine WBC 0-2 /HPF Urine Squamous Epithelial Cells 0-2 /HPF Urine Crystals NONE /LPF Urine Bacteria FEW H /HPF Urine Casts NONE /LPF Urine Mucus NEGATIVE /LPF Urine Culture Indicated NO White Blood Count 12.4 H 4.3-11.0 10^3/uL Red Blood Count 4.11 3.80-5.11 10^6/uL Hemoglobin 12.8 11.5-16.0 g/dL Hematocrit 37 35-52 % Mean Corpuscular Volume 89 80-99 fL Mean Corpuscular Hemoglobin 31 25-34 pg Mean Corpuscular Hemoglobin Concent 35 32-36 g/dL Red Cell Distribution Width 11.8 10.0-14.5 % Platelet Count 207 130-400 10^3/uL Mean Platelet Volume 10.3 9.0-12.2 fL Immature Granulocyte % (Auto) 1 % Neutrophils (%) (Auto) 77 H 42-75 % Lymphocytes (%) (Auto) 16 12-44 % Monocytes (%) (Auto) 6 0-12 % Eosinophils (%) (Auto) 1 0-10 % Basophils (%) (Auto) 1 0-10 % Neutrophils # (Auto) 9.5 H 1.8-7.8 10^3/uL Lymphocytes # (Auto) 2.0 1.0-4.0 10^3/uL Monocytes # (Auto) 0.7 0.0-1.0 10^3/uL Eosinophils # (Auto) 0.1 0.0-0.3 10^3/uL Basophils # (Auto) 0.1 0.0-0.1 10^3/uL Immature Granulocyte # (Auto) 0.1 0.0-0.1 10^3/uL Syphilis Total Antibody Negative Negative OB - Assessment/Plan/Diagnosis Assessment Assessment: active labor (at 38w6d) Admission Dx 1. IUP at term 38w6d 2. Hypothyroidism Admission Status: Inpatient Order (span 2 midnights) Reason for Inpatient Admission: L&D Plan Plan: Expectant Management Other Plan -ampicillin dose since GBS not available DANYELL HICKMAN MD Sep 27, 2023 02:52
--- NOTE | 2023-09-27 03:42 | OB Labor & Delivery Record ---
L&D History Date of Service Date of Service: Sep 27, 2023 History Expected Date of Delivery: Oct 05, 2023 Gestational Age in Weeks: 38 Hx : 6 Hx Para: 7 Complications Events: Routine care Operative Indications (Cesarea: N/A-Vaginal Delivery Intrapartal Events: Precipitous Labor < 3 hrs L&D Stage1 Stage One Onset of Labor - Date: Sep 27, 2023 Onset of Labor - Time: 01:00 Monitors and Tracing Monitor Mode: External Monitor Accelerations: Uniform Monitor Decelerations: Variable Station: -3 Medical Surgical Tech Variability: Average (6-10) Short Term Variability: Present Presentation: Vertex Signs of Distress by FHT Signs of Distress no Rupture of Membranes Spontaneous Ruture of Membrane: No Amniotic Membrane Fluid Desc.: Clear Vaginal Bleeding Description: Moderate Show Induction/Anesthesia Medications none L&D Stage2 Stage Two Stage II Date: Sep 27, 2023 Monitors and Tracing Monitor Mode: Internal Monitor Accelerations: Uniform Monitor Decelerations: Early Medical Surgical Tech Variability: Average (6-10) Short Term Variability: Present Position: Left Occiput Anterior Presentation: Vertex Signs of Distress by FHT Signs of Distress none Cord Descript/Complications Cord Vessel Description: 3 Vessels Delivery Type Infant Delivery Method: Spontaneous Vaginal Anterior Shoulder: Left Episiotomy/Perineal Laceration Laceraction(s)/Extensions: No Condition of Delivery 1 minute Comment: 8 5 minute Comment: 9 Condition of Condition of : Living Exam: No Observed Abnormalities Resuscitation Resuscitation: N/A - Spontaneous Resp L&D Stage3 Stage Three Stage III Date: Sep 27, 2023 Placenta Delivery Placenta Delivery: Spontaneous Delivery Summary Summary Estimated blood loss (mL): 100 Condition of Delivery Examined: Cervix Examined Post Hemorrhage: No Intervention Required none DANYELL HICKMAN MD Sep 27, 2023 03:42
[2023-09-27] MEDS ORDERED: OXYTOCIN DRIP PRE-MIX 500 ML IV SCH (03:45)
[2023-09-27] MEDS ORDERED: Tetanus/Diphtheria/Pertussis (Acell) ADULT Vaccine 0.5 ML IM ONE (03:45)
[2023-09-27] MEDS ORDERED: WITCH HAZEL(TUCKS) 40 EA JAR TOP PRN (03:45)
[2023-09-27] MEDS ORDERED: MEASLES, MUMPS, RUBELLA VACCINE (MMR) SQ ONE (03:45)
[2023-09-27] MEDS ORDERED: NALOXONE 0.4 MG/ML 1 ML VIAL IV PRN (03:45)
[2023-09-27] MEDS ORDERED: BENZOCAINE/MENTHOL (DERMOPLAST) 56 ML CAN TP PRN (03:45)
[2023-09-27] MEDS: IBUPROFEN 600 MG TABLET PO SCH ×4 (04:00→23:21)
[2023-09-27] MEDS: ACETAMINOPHEN 500 MG TABLET PO SCH ×4 (04:00→23:21)
[2023-09-27] MEDS ORDERED: CATHETER FLUSH 10 ML SYR IV SCH (06:00)
[2023-09-27] MEDS ORDERED: AMPICILLIN (IV) 1,000 MG in NS (IVPB) 50 ML 50 ML IV SCH (06:15)
[2023-09-27] MEDS: DOCUSATE SODIUM 100 MG CAPSULE PO SCH ×2 (08:40→20:13)
[2023-09-27] MEDS: PRENATAL VITAMIN TABLET PO SCH (08:40)
[2023-09-27] MEDS ORDERED: PREN-8 PO (23:00)
[2023-09-27] MEDS ORDERED: LEVO75CA5 PO (23:00)
[2023-09-28] VITALS: BP 98/54
[2023-09-28 05:34] VITALS: BP 106/59
[2023-09-28] MEDS: IBUPROFEN 600 MG TABLET PO SCH (05:34)
[2023-09-28] MEDS: ACETAMINOPHEN 500 MG TABLET PO SCH (05:34)
[2023-09-28 05:36] LABS: BASOPHILS # (AUTO) 0.1 10^3/uL (0.0-0.1); BASOPHILS % (AUTO) 1 % (0-10); EOSINOPHILS # (AUTO) 0.3 10^3/uL (0.0-0.3); EOSINOPHILS % (AUTO) 3 % (0-10); HEMATOCRIT 31 % (35-52); LYMPHOCYTES # (AUTO) 3.2 10^3/uL (1.0-4.0); LYMPHOCYTES % (AUTO) 32 % (12-44); MEAN CORPUSCULAR HEMOGLOBIN 32 pg (25-34); MEAN CORPUSCULAR HGB CONC 35 g/dL (32-36); MEAN CORPUSCULAR VOLUME 90 fL (80-99); MEAN PLATELET VOLUME 10.8 fL (9.0-12.2); MONOCYTES # (AUTO) 0.7 10^3/uL (0.0-1.0); MONOCYTES % (AUTO) 7 % (0-12); NEUTROPHILS # (AUTO) 5.8 10^3/uL (1.8-7.8); NEUTROPHILS % (AUTO) 58 % (42-75); PLATELET COUNT 189 10^3/uL (130-400); WHITE BLOOD COUNT 10.1 10^3/uL (4.3-11.0)
[2023-09-28] MEDS ORDERED: FLU QUADRIvalent (6 months+) 60 mcg/0.5 ml 2023-2024 (FLUARIX) IM ONE (07:00)
--- NOTE | 2023-09-28 08:14 | Discharge Inst-Women's Service ---
Discharge Inst-Women's Serv Depart Medication/Instructions New, Converted or Re-Newed RX: Other Instructions May take ibuprofen [id number] 200 mg tablets and take 2 or 3 every 6 hours if needed for cramps. Continue with your levothyroxine as well as vitamin Problems Reviewed?: Yes Consults/Follow Up Additional Follow Up: Yes (Dr. Morales In 6 weeks) Activity Activity: Activity as Tolerated Driving Instructions: No Driving for 1 Week Nothing Inside Vagina: No [place] (For 6 weeks) Diet Discharge Diet: Regular Diet Return to The Hospital For: As below Symptoms to Report to : Bleeding Excessive, Fever Over 101 Degrees F, Vaginal Discharge Foul For Any Problems or Questions: Contact Your Physician DANYELL HICKMAN MD Sep 28, 2023 08:14
--- NOTE | 2023-09-28 08:40 | Discharge Summary ---
Diagnosis/Chief Complaint Date of Admission Sep 27, 2023 at 02:03 Date of Discharge September 28, 2023 Admission Diagnosis Admission Diagnosis 1. Intrauterine at 38 weeks 6 days gestation Discharge Diagnosis 1. Intrauterine at 38 weeks 6 days gestation Chief Complaint/HPI Chief Complaint/HPI 33-year-old 3 now term 3 who initially presented to labor and delivery at 5-6 cm dilated. She was austen regularly every 2-3 minutes. Membranes were intact on presentation Discharge Summary-OBS Procedures 1. Spontaneous vaginal delivery Discharge Physical Examination Allergies: Coded Allergies: No Known Drug Allergies (Unverified , 01/22/21) Vitals & I&Os Intake and Output 09/27/23 23:59 Intake Total 1200 ml Balance 1200 ml Vital Sign - Last 12Hours Date Time Temp Pulse Resp B/P (MAP) Pulse Ox O2 Delivery O2 Flow Rate FiO2 09/28/23 05:34 36.2 57 16 106/59 (75) 98 Room Air General Appearance: Alert Respiratory: Clear to Auscultation Cardiovascular: Regular Rate Abdominal: Soft (With uterus firm) Psych/Mental Status: Mental Status NL Hospital Course Was the Problem List Reviewed?: Yes shortly after presentation patient continued to dilate. She rapidly went on to completion and delivered a term viable female. received Apgars of 8 at 1 minute and 9 at 5 minutes. See labor and delivery note for full details. Following delivery she underwent routine care orders. She had no complications during the remainder of hospital stay. Her hemoglobin on the morning of September 28 was 11.0 compared to admission of 12.8. She did not admit to any significant bleeding. She tolerated a regular diet. She was ambulatory without chest pain or leg pain. She was felt ready for dismissal and eager for dismissal. She will follow up with Dr. Morales in 6 weeks. Labs Laboratory Tests 09/28/23 05:27: White Blood Count 10.1, Red Blood Count 3.49L, Hemoglobin 11.0L, Hematocrit 31L, Mean Corpuscular Volume 90, Mean Corpuscular Hemoglobin 32, Mean Corpuscular Hemoglobin Concent 35, Red Cell Distribution Width 11.9, Platelet Count 189, Mean Platelet Volume 10.8, Immature Granulocyte % (Auto) 1, Neutrophils (%) (Auto) 58, Lymphocytes (%) (Auto) 32, Monocytes (%) (Auto) 7, Eosinophils (%) (Auto) 3, Basophils (%) (Auto) 1, Neutrophils # (Auto) 5.8, Lymphocytes # (Auto) 3.2, Monocytes # (Auto) 0.7, Eosinophils # (Auto) 0.3, Basophils # (Auto) 0.1, Immature Granulocyte # (Auto) 0.1 Discharge Instructions to patient/family Please see electronic discharge instructions given to patient. Discharge Medications Reviewed and agree with Discharge Medication list on patient's Discharge Instruction sheet DANYELL HICKMAN MD Sep 28, 2023 08:40
[2023-09-28 09:24] VITALS: BP 106/51
[2023-09-28] MEDS: PRENATAL VITAMIN TABLET PO SCH (09:26)
[2023-09-28] MEDS: DOCUSATE SODIUM 100 MG CAPSULE PO SCH (09:26)
[2023-09-28 11:15] VITALS: BP 106/51
== END 2023-09-28 11:15 | disposition home or self-care (01) | DRG 807 ==
LOC: LDRP 01:16 → WSo 01:16 → LDRP 02:03 → WS 05:30
PROVIDERS: ADMIT Family Medicine; ATTEND Family Medicine
PROC: 10E0XZZ Delivery of Products of Conception, External Approach (ICD-10-PCS; principal; 2023-09-27)
PROC: 10907ZC Drainage of Amniotic Fluid, Therapeutic from Products of Conception, Via Natural or Artificial Opening (ICD-10-PCS; 2023-09-27)
DX: O99.284 Endocrine, nutritional and metabolic diseases complicating childbirth (principal); Z37.0 Single live birth; E03.9 Hypothyroidism, unspecified; Z3A.38 38 weeks gestation of pregnancy; O62.3 Precipitate labor
CPT/HCPCS: 36415; 81000; 85025; 86780; 86850; 86900; 86901; 99212